=== PATIENT | female | born 1990 | race Caucasian/White ===

== ENCOUNTER → 2017-08-24 | Outpatient (CLI) | payer OTHER ==
[~2017-08-24] MED LIST: AZIT250 PO; CEPH500 PO; CIPR500 PO; CYCL10 PO; Cipro500 MG PO; DESO.25TC TOP; DIPATR PO; FLUC100 PO; Flagyl500 MG PO; IBUP400 PO; IBUP600 PO; IBUP800 PO; MEDR150I IM; Macrobid 100 M100 MG PO; NAPR500 PO; PROM25 PO; Pyridium200 MG PO; RXOXYACE PO; SULTRIDS PO; TRAM50 PO; Verotin-Gr Cap1 EACH PO; Zofran Odt4 MG SL
== END | disposition home or self-care (01) ==
LOC: LAB SHORT 12:40 → LAB 12:40
DX: R30.0 Dysuria (principal)
CPT/HCPCS: 87077; 87086; 87186

== ENCOUNTER → 2018-04-17 | Outpatient (CLI) | payer OTHER | END | disposition home or self-care (01) | LOC: LAB SHORT 16:20 → LAB 16:20 | PROVIDERS: Obstetrics & Gynecology | DX: Z01.419 Encounter for gynecological examination (general) (routine) without abnormal findings (principal); R30.0 Dysuria | CPT/HCPCS: 87086; G0123 ==

== ENCOUNTER 2018-05-14 06:05 | Day surgery (SDC) | payer OTHER ==
[~2018-05-14] VITALS: Ht 188 cm; Wt 71.2 kg
--- NOTE | 2018-05-14 06:41 | NUR ---
History, Chart, Medications and Allergies reviewed before start of procedure. Patient confirms NPO status and agrees with scheduled surgery. Lungs clear T/O to Auscultation. Patient reports completing Chlorhexadine shower X2 prior to admission to hospital. Patient States Post-Procedure ride home has been arranged. Pre-Op teaching done. Pt verbalizes understanding.
--- NOTE | 2018-05-14 07:10 | NUR ---
BUSH HOG OPERATOR AT BEDSIDE FOR REPORT WITH CYNDEE GRAYSON RN. STUDENT PRESENT.
--- NOTE | 2018-05-14 07:13 | NUR ---
PATIENT DECIDED TO REMOVE ALL PIERCINGS AFTER DISCUSSION OF RISKS, PATIENT GIVEN A CLEAR BAG TO PLACE JEWELRY IN PER HER REQUEST AND SHE PLACED WITH HER OTHER BELONGINGS. BELONGINGS UNDER GURNEY CONTAINED IN A BELONGINGS BAG.
--- NOTE | 2018-05-14 07:14 | NUR ---
PATIENT DECLINED GETTING UP TO VOID.
--- NOTE | 2018-05-14 07:55 | NUR ---
05/14/18 0755 Heather Weaver NO PREOPERATIVE ANTIBIOTICS ORDERED
--- NOTE | 2018-05-14 09:41 | NUR ---
0935 Patient up to Ambulate independently. Gait steady. Discharge instructions reviewed with patient. Patient verbalizes understanding. Copy given to patient to take home. Patient States Post-Procedure ride home has been arranged. Discharged via wheelchair to private car for ride home.
== END 2018-05-14 22:53 | disposition home or self-care (01) ==
LOC: ORSCMMR 06:05 → ORD 07:30 → ORSCMMR 07:30
PROVIDERS: Surgery
PROC: 0HBU0ZX Excision of Left Breast, Open Approach, Diagnostic (ICD-10-PCS; principal; 2018-05-14 07:30)
DX: D24.2 Benign neoplasm of left breast (principal)
CPT/HCPCS: 88305; J1100; J2250; J2405; J2704; J3010; J7120

== ENCOUNTER → 2018-05-28 | Outpatient (CLI) | payer OTHER | END | disposition home or self-care (01) | LOC: LAB SHORT 15:57 → LAB 15:57 | DX: R30.0 Dysuria (principal) | CPT/HCPCS: 87086 ==

== ENCOUNTER 2018-06-13 21:22 | Emergency (ER) | payer OTHER ==
[~2018-06-13] VITALS: Ht 188 cm; Wt 68.0 kg
[2018-06-13] MEDS ORDERED: CYCL10 PO (23:25)
== END 2018-06-13 23:42 | disposition home or self-care (01) ==
LOC: ER 21:22
DX: M65.322 Trigger finger, left index finger (principal); M65.321 Trigger finger, right index finger; M65.352 Trigger finger, left little finger; M65.351 Trigger finger, right little finger; M65.332 Trigger finger, left middle finger; M65.331 Trigger finger, right middle finger; M65.342 Trigger finger, left ring finger; M65.341 Trigger finger, right ring finger; Z88.2 Allergy status to sulfonamides; Z88.0 Allergy status to penicillin
CPT/HCPCS: 99283

== ENCOUNTER → 2019-05-30 | Outpatient (CLI) | payer OTHER ==
[~2019-05-30] MED LIST changes: +Lactated Ringe500 M1 IV; +Ondansetron4 MG/2 M2 IV; +Phenergan25 M1 PO
[2019-05-30 15:24] LABS: Anion Gap 7 mmol/L (6-16); Blood Urea Nitrogen 11 mg/dL (8-24); Bun/Creatinine Ratio 22.4 (12.0-20.0); CO2, Blood 22 mmol/L (21-32); Calcium, Blood 8.2 mg/dL (8.5-10.1); Chloride, Blood 108 mmol/L (98-108); Creatinine, Blood 0.49 mg/dL (0.40-1.00); Glomerular Filtration Rate >60 (60-); Glucose, Blood 104 mg/dL (70-99); Potassium, Blood 3.8 mmol/L (3.5-5.5); Sodium, Blood 137 mmol/L (136-145)
== END | disposition home or self-care (01) ==
LOC: LAB SHORT 13:32 → LAB 13:32
PROVIDERS: Hospitalist
DX: R10.9 Unspecified abdominal pain (principal)
CPT/HCPCS: 80048

== ENCOUNTER → 2019-07-03 | Outpatient (CLI) | payer OTHER ==
[2019-07-03 19:11] LABS: BASOPHILS ABSOLUTE AUTO 0.03 K/mm3 (0.00-0.23); BASOPHILS PERCENT AUTO 0 % (0-2); EOSINOPHILS PERCENT AUTO 0 % (0-6); Hematocrit 37.6 % (33.0-51.0); Hemoglobin 12.3 g/dL (11.5-16.0); IMMATURE GRAN ABSOLUTE AUTO 0.02 K/mm3 (0.00-0.10); IMMATURE GRAN PERCENT AUTO 0 % (0-1); LYMPHOCYTES ABSOLUTE AUTO 1.52 K/mm3 (0.84-5.20); LYMPHOCYTES PERCENT AUTO 20 % (21-46); MONOCYTES ABSOLUTE AUTO 0.67 K/mm3 (0.16-1.47); MONOCYTES PERCENT AUTO 9 % (4-13); Mean Corpuscular HGB 30.8 pg (26.0-34.0); Mean Corpuscular HGB Conc 32.7 g/dL (31.5-36.5); Mean Corpuscular Volume 94 fL (80-100); Mean Platelet Volume 11.7 fL (9.1-12.4); NEUTROPHILS PERCENT AUTO 71 % (41-73); Platelet Count 226 K/mm3 (150-400); RDW Coefficient Variation 12.9 % (11.7-14.2); RDW Standard Deviation 44.3 fL (35.1-46.3); White Blood Cell Count 7.64 K/mm3 (4.00-11.30)
== END | disposition home or self-care (01) ==
LOC: LAB 18:19 → LAB SHORT 18:19
PROVIDERS: Obstetrics & Gynecology
DX: Z34.82 Encounter for supervision of other normal pregnancy, second trimester (principal); Z3A.27 27 weeks gestation of pregnancy
CPT/HCPCS: 82950; 85025

== ENCOUNTER → 2019-08-13 | Outpatient (CLI) | payer OTHER ==
[~2019-08-13] MED LIST changes: +IBUP800
== END | disposition home or self-care (01) ==
LOC: LAB SHORT 18:00 → LAB 18:00
DX: R30.0 Dysuria (principal)
CPT/HCPCS: 87086

== ENCOUNTER 2019-09-23 04:56 | Inpatient (IN) | payer OTHER ==
[~2019-09-23] VITALS: Ht 188 cm; Wt 90.9 kg
[~2019-09-23 04:56] MED LIST changes: -IBUP800
[2019-09-23 05:58] LABS: BASOPHILS ABSOLUTE AUTO 0.04 K/mm3 (0.00-0.23); BASOPHILS PERCENT AUTO 0 % (0-2); EOSINOPHILS PERCENT AUTO 0 % (0-6); Hematocrit 36.8 % (33.0-51.0); Hemoglobin 12.5 g/dL (11.5-16.0); IMMATURE GRAN ABSOLUTE AUTO 0.04 K/mm3 (0.00-0.10); IMMATURE GRAN PERCENT AUTO 0 % (0-1); LYMPHOCYTES ABSOLUTE AUTO 2.81 K/mm3 (0.84-5.20); LYMPHOCYTES PERCENT AUTO 23 % (21-46); MONOCYTES ABSOLUTE AUTO 0.96 K/mm3 (0.16-1.47); MONOCYTES PERCENT AUTO 8 % (4-13); Mean Corpuscular Volume 91 fL (80-100); Mean Platelet Volume 10.2 fL (9.1-12.4); NEUTROPHILS ABSOLUTE AUTO 8.27 K/mm3 (1.96-9.15); NEUTROPHILS PERCENT AUTO 68 % (41-73); Platelet Count 251 K/mm3 (150-400); RDW Coefficient Variation 13.2 % (11.7-14.2); RDW Standard Deviation 43.6 fL (35.1-46.3); Red Blood Cell Count 4.03 M/mm3 (3.80-5.20); White Blood Cell Count 12.12 K/mm3 (4.00-11.30)
--- NOTE | 2019-09-23 13:45 | NUR ---
REPORT TAKEN ASSUMEDD CARE
--- NOTE | 2019-09-23 19:12 | NUR ---
REPORT TO ARA COTA
[2019-09-24 05:20] LABS: BASOPHILS ABSOLUTE AUTO 0.06 K/mm3 (0.00-0.23); BASOPHILS PERCENT AUTO 1 % (0-2); EOSINOPHILS PERCENT AUTO 0 % (0-6); Hematocrit 34.2 % (33.0-51.0); Hemoglobin 11.2 g/dL (11.5-16.0); IMMATURE GRAN ABSOLUTE AUTO 0.06 K/mm3 (0.00-0.10); IMMATURE GRAN PERCENT AUTO 1 % (0-1); LYMPHOCYTES ABSOLUTE AUTO 2.55 K/mm3 (0.84-5.20); LYMPHOCYTES PERCENT AUTO 22 % (21-46); MONOCYTES ABSOLUTE AUTO 0.86 K/mm3 (0.16-1.47); MONOCYTES PERCENT AUTO 8 % (4-13); Mean Corpuscular HGB 30.7 pg (26.0-34.0); Mean Corpuscular HGB Conc 32.7 g/dL (31.5-36.5); Mean Corpuscular Volume 94 fL (80-100); Mean Platelet Volume 10.1 fL (9.1-12.4); NEUTROPHILS PERCENT AUTO 69 % (41-73); Platelet Count 206 K/mm3 (150-400); RDW Coefficient Variation 13.5 % (11.7-14.2); Red Blood Cell Count 3.65 M/mm3 (3.80-5.20); White Blood Cell Count 11.43 K/mm3 (4.00-11.30)
[2019-09-24] MEDS ORDERED: IBUP800 (08:30)
--- NOTE | 2019-09-24 09:25 | NUR ---
D/C HOME WITH BABY
== END 2019-09-24 09:20 | disposition home or self-care (01) | DRG 807 ==
LOC: OBS 04:56 → BC 04:59 → OBS 05:36 → BC 05:37
PROVIDERS: ADMIT Obstetrics & Gynecology
PROC: 10E0XZZ Delivery of Products of Conception, External Approach (ICD-10-PCS; principal; 2019-09-23)
PROC: 0HQ9XZZ Repair Perineum Skin, External Approach (ICD-10-PCS; 2019-09-23)
DX: O70.0 First degree perineal laceration during delivery (principal); Z37.0 Single live birth; Z3A.39 39 weeks gestation of pregnancy; Z88.2 Allergy status to sulfonamides
CPT/HCPCS: 36415; 51702; 85025; 86850; 86900; 86901; A9270; J1885; J2001; J2590; J3010; J7120

== ENCOUNTER 2019-11-27 06:18 | Day surgery (SDC) | payer OTHER ==
[~2019-11-27] VITALS: Ht 188 cm; Wt 87.5 kg
[~2019-11-27 06:18] MED LIST changes: +IBUP800; +NUVARING VAGIN1 EAC1 VG; +PANT40 PO
--- NOTE | 2019-11-27 09:14 | NUR ---
11/27/19 0914 KAMALA BEST PATIENT UP TO RECLINER. TOLERATING SIPS OF PO INTAKE. UP TO BATHROOM WITH ASSISTANCE AND WC. PAD CHANGED. SMALL AMOUNT RED BLOOD ON PAD. ABD INCISIONS C/D/I WITH BANDAIDS IN PLACE. PT GIVEN 100 MCG IV FENTANYL AND 800 IBU PO FOR PAIN PER MD ORDERS. TOLERATING PO INTAKE AND DENIES NAUSEA/VOMITING. REPORTS IMPROVEMENT IN PAIN WITHIV PAIN MEDICATION.
== END 2019-11-27 09:22 | disposition home or self-care (01) ==
LOC: ORSCSDS 06:18
PROVIDERS: Obstetrics & Gynecology
PROC: 0UT74ZZ Resection of Bilateral Fallopian Tubes, Percutaneous Endoscopic Approach (ICD-10-PCS; principal; 2019-11-27 07:30)
DX: Z30.2 Encounter for sterilization (principal)
CPT/HCPCS: 88302; J0171; J0330; J1100; J1885; J2250; J2405; J2704; J3010; J7120

== ENCOUNTER → 2019-12-11 | Outpatient (CLI) | payer OTHER | END | disposition home or self-care (01) | LOC: LAB SHORT 17:32 → LAB 17:32 | DX: R30.0 Dysuria (principal) | CPT/HCPCS: 87077; 87086; 87147; 87186 ==

== ENCOUNTER 2024-06-06 13:02 | Day surgery (SDC) | payer OTHER ==
[~2024-06-06 13:02] MED LIST changes: +CeFAZolin Sodium 2,000 MG in NS 100 ML IV SCH; +Lactated Ringer's 1,000 ML IV SCH
[2024-06-06] MEDS ORDERED: MONT10T PO (13:07)
== END 2024-06-06 23:00 | disposition home or self-care (01) ==
LOC: ORSCMMR 13:02 → ORD 14:15 → ORSCMMR 23:00
DX: R10.2 Pelvic and perineal pain (principal); N80.03 Adenomyosis of the uterus; Z53.9 Procedure and treatment not carried out, unspecified reason
CPT/HCPCS: J0690; J7120

== ENCOUNTER 2024-08-08 13:18 | Day surgery (SDC) | payer OTHER ==
[2024-08-08] VITALS (13 sets, daily range): BP systolic 100–126; BP diastolic 50–83
[~2024-08-08] VITALS: Ht 183 cm; Wt 83.9 kg
[~2024-08-08 13:18] MED LIST changes: -CeFAZolin Sodium 2,000 MG in NS 100 ML IV SCH; -Lactated Ringer's 1,000 ML IV SCH; +MONT10T PO
[2024-08-08] MEDS ORDERED: CeFAZolin Sodium 2,000 MG in NS 100 ML IV SCH (14:05)
--- NOTE | 2024-08-08 14:36 | NUR ---
Ambulatory in Day Surgery History, Chart, Medications and Allergies reviewed before start of procedure.Patient confirms NPO status and agrees with scheduled surgery. Patient reports completing Chlorhexadine shower X2 prior to admission to hospital.
[2024-08-08] MEDS ORDERED: Bupivacaine 0.5% W/EPI 1:200000 SDV 30 ML Vial ONE (14:43)
[2024-08-08] MEDS ORDERED: FentaNYL Citrate 50 MCG/ML 2 ML Injection ONE ×2 (14:44→16:26)
[2024-08-08] MEDS ORDERED: Rocuronium Bromide 10 MG/ML 5ML Injection IV ONE (14:44)
[2024-08-08] MEDS ORDERED: HYDROmorphone HCl/Pf 1MG SYR ONE ×3 (14:44→16:47)
[2024-08-08] MEDS ORDERED: Midazolam HCl 1MG / ML 2ML Vial ONE (14:44)
[2024-08-08] MEDS ORDERED: Dexamethasone Sod Phos 10 MG/ML 1ML VIAL ONE (15:05)
[2024-08-08] MEDS ORDERED: Sugammadex Sodium 200 MG/2ML SDV (100 MG/ML) ONE (15:51)
[2024-08-08] MEDS ORDERED: Ondansetron HCl 2 MG / ML 2ML Vial ONE (15:51)
[2024-08-08] MEDS ORDERED: Ketorolac Tromethamine 30mg Vial ONE (15:51)
[2024-08-08] MEDS ORDERED: FentaNYL Citrate 50 MCG/ML 2 ML Injection IV PRN ×3 (16:10→16:20)
[2024-08-08] MEDS ORDERED: HYDROmorphone HCl/Pf 1MG SYR IV PRN ×2 (16:10→16:15)
[2024-08-08] MEDS ORDERED: Ondansetron HCl 2 MG / ML 2ML Vial IV PRN ×2 (16:15→16:25)
[2024-08-08] MEDS ORDERED: HYDROcodone 5-APAP 325 TAB PO PRN (16:20)
[2024-08-08] MEDS ORDERED: Naloxone HCl 0.4MG / ML 1ML Vial IV PRN (16:25)
--- NOTE | 2024-08-08 17:09 | NUR ---
ARRIVAL TO UNIT AFTER RECEIVING REPORT FROM SENIOR ASSET MANAGER, PATIENT TRANSFERRED TO UNIT VIA GURNEY AT APPROX 1650. PATIENT ALERT. COMMUNICATING NEEDS EFFECTIVELY. S/P LAVH. VSS. REPORTING 2/10 PAIN - KPAD IN PLACE. X2 INCISION SITES W/ WOUND GLUE C/D/I. MINIMAL BRUISING NOTED AROUND SITES. SCANT BLEEDING ON FLACA PAD. CASTELAN CATHETER IN PLACE W/ ORDER TO REMOVE ONCE AMBULATING - DRAINING YELLOW URINE TO GRAVITY. DENIES N/V - SMALL SNACKS AND WATER WITHIN REACH. IVF INFUSING TO GRAVITY. FAMILY AT BEDSIDE. CALL LIGHT IN REACH.
[2024-08-08] MEDS ORDERED: Ketorolac Tromethamine 30mg Vial IV SCH (18:00)
[2024-08-08] MEDS ORDERED: Norco 5-325 Ta1 EACH PO (18:42)
[2024-08-08] MEDS ORDERED: IBU800 MG PO (18:42)
--- NOTE | 2024-08-08 18:56 | NUR ---
SHIFT SUMMARY NO ACUTE CHANGES SINCE ARRIVAL TO UNIT. S/P LAVH. MANAGING PAIN PER EMAR AND W/ KPAD W/ REPORTED RELIEF. VSS. X2 SITES W/ WOUND GLUE C/D/I - NO CHANGES TO BRUISING AROUND SITES. CASTELAN CATHETER REMOVED AT PATIENT REQUEST - AWAITING SPONTANEOUS VOID. TOLERATING PO INTAKE. PATIENT REQUESTING TO DC HOME TONIGHT IF POSSIBLE - EDUCATION PROVIDED REGARDING NEEDING TO VOID POST CASTELAN REMOVAL. CALL LIGHT IN REACH. FAMILY AT BEDSIDE. REPORT GIVEN TO JENNIFER COTA TO ASSUME CARE AT THIS TIME.
[2024-08-08 19:52] LABS: BASOPHILS ABSOLUTE AUTO 0.05 K/mm3 (0.00-0.23); BASOPHILS PERCENT AUTO 0 % (0-2); EOSINOPHILS ABSOLUTE AUTO 0.00 K/mm3 (0.00-0.68); EOSINOPHILS PERCENT AUTO 0 % (0-6); Hematocrit 40.7 % (33.0-51.0); Hemoglobin 13.9 g/dL (11.5-16.0); IMMATURE GRAN ABSOLUTE AUTO 0.04 K/mm3 (0.00-0.10); IMMATURE GRAN PERCENT AUTO 0 % (0-1); LYMPHOCYTES ABSOLUTE AUTO 1.09 K/mm3 (0.84-5.20); LYMPHOCYTES PERCENT AUTO 7 % (21-46); MONOCYTES ABSOLUTE AUTO 0.20 K/mm3 (0.16-1.47); MONOCYTES PERCENT AUTO 1 % (4-13); Mean Corpuscular HGB Conc 34.2 g/dL (31.5-36.5); Mean Corpuscular Volume 91 fL (80-100); NEUTROPHILS ABSOLUTE AUTO 14.64 K/mm3 (1.96-9.15); NEUTROPHILS PERCENT AUTO 92 % (41-73); NRBC ABSOLUTE 0.00 K/mm3 (0.00-0.02); NRBC Auto 0.0 /100 WBC (0.0-0.2); Platelet Count 283 K/mm3 (150-400); RDW Coefficient Variation 12.4 % (11.7-14.2); RDW Standard Deviation 41.3 fL (35.1-46.3)
--- NOTE | 2024-08-08 20:41 | NUR ---
DISCHARGE NOTE. PT POD 0 FOR LAP HYSTER. PT A/O X4, LAP SITES C/D/I. PT REPORTS PAIN CONTROLLED AND DECLINED PAIN MEDICATION PRIOR TO DISCHARGE. INSTRUCTIONS REVIEWED AND SIGNED, PT DECLINED FURTHER QUESTIONS. PT VOIDING URINE MULTIPLE TIMES AND BLADDER SCAN SHOWED NO RETENTION. PT LEFT WITH FAMILY AND WAS AMBULATORY. PT LEFT FLOOR AT 2032.
== END 2024-08-08 20:40 | disposition home or self-care (01) ==
LOC: ORSCMMR 13:18 → ORD 14:45 → ORSCMMR 14:45 → SURS 16:55 → ORSCMMR 20:40
PROVIDERS: Obstetrics & Gynecology
PROC: 0UT9FZZ Resection of Uterus, Via Natural or Artificial Opening With Percutaneous Endoscopic Assistance (ICD-10-PCS; principal; 2024-08-08 15:30)
PROC: 0UJ34ZZ Inspection of Ovary, Percutaneous Endoscopic Approach (ICD-10-PCS; principal; 2024-08-08 15:30)
DX: R10.2 Pelvic and perineal pain (principal); N80.03 Adenomyosis of the uterus; N73.6 Female pelvic peritoneal adhesions (postinfective); N83.201 Unspecified ovarian cyst, right side; Q87.40 Marfan syndrome, unspecified
CPT/HCPCS: 36415; 85025; 88307; A9270; J0690; J1100; J1171; J1885; J2250; J2405; J2704; J3010; J7120

== ENCOUNTER → 2024-11-06 | Outpatient (CLI) | payer OTHER ==
[~2024-11-06] MED LIST changes: +IBU800 MG PO; +Norco 5-325 Ta1 EACH PO
[2024-11-07 12:55] LABS: Bacterial Vaginosis PCR Negative (NEGATIVE); Candida Group, PCR NOT DETECTED (NOT DETECT); Candida glabrata-krusei, PCR NOT DETECTED (NOT DETECT)
== END ==
LOC: LAB SHORT 17:30 → LAB 17:30
PROVIDERS: Hospitalist
DX: N76.0 Acute vaginitis (principal); R30.0 Dysuria
CPT/HCPCS: 81515; 87086